=== PATIENT | female | born 1995 | race African-American/Black ===

== ENCOUNTER 2018-10-15 05:42 | Emergency (ER) | payer SELFPAY ==
--- NOTE | 2018-10-15 07:50 | RAD ---
CHEST PA AND LATERAL TWO VIEWS: History: 23-year-old female with history of left sided chest pain. Comparison: 06-04-05 FINDINGS/IMPRESSION: Heart size is within normal limits. The lungs are clear. No pneumonia, edema, pleural effusion or oth er acute process. Stable from prior study. POS: [facility]
== END 2018-10-15 06:44 | disposition home or self-care (01) ==
LOC: SCSER 05:42
DX: R07.89 Other chest pain (principal)
CPT/HCPCS: 71046; 93005

== ENCOUNTER 2021-08-26 14:34 | Emergency (ER) | payer SELFPAY | END 2021-08-26 16:35 | disposition home or self-care (01) | LOC: ERS 14:34 | DX: R60.0 Localized edema (principal) | CPT/HCPCS: 36415; 85379 ==